=== PATIENT | female | born 1980 | race Asian ===

== ENCOUNTER 2019-06-23 16:29 | Outpatient (CLI) | payer OTHER ==
[~2019-06-23] VITALS: Ht 154.9 cm; Wt 63.1 kg
[2019-06-23 17:12] VITALS: BP 111/73
[2019-06-23 17:35] LABS: MICROSCOPIC NOT IND
[2019-06-23 17:40] LABS: CULTURE INDICATED? NO
== END 2019-06-23 20:45 | disposition home or self-care (01) ==
LOC: LDOP 16:29
PROVIDERS: ATTEND Obstetrics & Gynecology
DX: O32.2XX0 Maternal care for transverse and oblique lie, not applicable or unspecified (principal); O46.93 Antepartum hemorrhage, unspecified, third trimester; O09.523 Supervision of elderly multigravida, third trimester; Z3A.28 28 weeks gestation of pregnancy; Z88.2 Allergy status to sulfonamides
CPT/HCPCS: 59025; 76805; 81003; 99201; G0463

== ENCOUNTER 2019-09-05 09:06 | Inpatient (IN) | payer OTHER ==
[~2019-09-05] VITALS: Ht 154.9 cm; Wt 71.8 kg
[2019-09-05] MEDS ORDERED: D5%-LACTATED RINGERS 1,000 ML IV SCH (09:22)
[2019-09-05] MEDS ORDERED: OXYTOCIN 30U/ 0.9% NaCL 500ML 500 ML IV PRN (09:22)
[2019-09-05] MEDS ORDERED: OXYTOCIN 30U/ 0.9% NaCL 500ML 500 ML IV ONE (09:22)
[2019-09-05] MEDS ORDERED: TERBUTALINE 1 MG/ML, 1ML IVPush PRN (09:30)
[2019-09-05] MEDS ORDERED: ONDANSETRON 2MG/ML, 2ML IVPush PRN (09:30)
[2019-09-05] MEDS ORDERED: FENTANYL PF 100 MCG/2ML IV PRN (09:30)
[2019-09-05] MEDS ORDERED: TERBUTALINE 1 MG/ML, 1ML SQ PRN (09:30)
[2019-09-05] MEDS ORDERED: CALCIUM CARBONATE 500 MG TAB.CHEW PO PRN (09:30)
[2019-09-05] MEDS: LACTATED RINGERS 1,000 ML IV SCH ×3 (09:30→17:28)
[2019-09-05 09:40] VITALS: BP 128/84
[2019-09-05] MEDS ORDERED: PLEASE ENTER HEIGHT AND WEIGHT MC SCH (10:00)
[2019-09-05 10:08] LABS: BASOPHILS # (AUTO) 0.03 x10^3/uL (0-0.1); BASOPHILS % (AUTO) 0 % (0-1); EOSINOPHILS # (AUTO) 0.06 x10^3/uL (0-0.4); EOSINOPHILS % (AUTO) 1 % (1-7); LYMPHOCYTES # (AUTO) 1.54 x10^3/uL (1-3.4); LYMPHOCYTES % (AUTO) 19 % (22-44); MD NO; MEAN CORPUSCULAR HEMOGLOBIN 27.8 pg (27.0-34.8); MEAN CORPUSCULAR HGB CONC 32.4 g/dL (32.4-35.8); MEAN CORPUSCULAR VOLUME 85.8 fL (80-100); MEAN PLATELET VOLUME 7.6 fL (7.4-10.4); MONOCYTES # (AUTO) 0.51 x10^3/uL (0.2-0.8); MONOCYTES % (AUTO) 6 % (2-9); NEUTROPHILS # (AUTO) 5.97 x10^3/uL (1.8-6.8); NEUTROPHILS % (AUTO) 74 % (42-75); PLATELET COUNT 249 x10^3/uL (130-400); RED BLOOD COUNT 4.49 x10^6/uL (3.82-5.3); RED CELL DISTRIBUTION WIDTH 14.3 % (9.6-15.2)
[2019-09-05] MEDS ORDERED: OXYTOCIN 30U/ 0.9% NaCL 500ML 500 ML ONE ×2 (10:13→20:12)
[2019-09-05] MEDS ORDERED: LIDOCAINE 1%, 20ML ONE (10:46)
[2019-09-05] MEDS ORDERED: NEWBORN KIT ONE (10:46)
[2019-09-05] MEDS ORDERED: MISOPROSTOL 200 MCG TABLET ONE (10:46)
[2019-09-05] MEDS ORDERED: FENTANYL PF 100 MCG/2ML ONE ×2 (14:55→16:10)
[2019-09-05] MEDS: FENTANYL PF 100 MCG/2ML IVPush PRN ×2 (15:03→16:20)
[2019-09-05] MEDS ORDERED: FENTANYL/BUPIV./NS/PF 250 ML EPIDCONT SCH (16:17)
[2019-09-05] MEDS ORDERED: FENTANYL PF 500 MCG, BUPIVACAINE/PF 0.5%, 30ML 62.5 ML in SODIUM CHLORIDE 0.9% 177.5 ML EPIDCONT SCH (16:30)
[2019-09-05] MEDS ORDERED: BUPIVACAINE 0.25% ONE (16:39)
[2019-09-05] MEDS ORDERED: EPHEDRINE 50 MG/ML, 1ML ONE (17:17)
[2019-09-05] MEDS ORDERED: EPHEDRINE 50 MG/ML, 1ML IVPush ONE (17:30)
[2019-09-05] MEDS: OXYTOCIN 30U/ 0.9% NaCL 500ML 500 ML IV SCH (19:37)
[2019-09-05] MEDS ORDERED: METHYLERGONOVINE 0.2 MG/ML IM PRN (20:00)
[2019-09-05] MEDS ORDERED: ACETAMINOPHEN 325 MG TABLET PO PRN (20:00)
[2019-09-05] MEDS ORDERED: ONDANSETRON 2MG/ML, 2ML IV PRN (20:00)
[2019-09-05] MEDS ORDERED: MAGNESIUM HYDROXIDE 8%, 30ML UDC PO PRN (20:00)
[2019-09-05] MEDS ORDERED: OXYTOCIN 10 UNITS/ML, 1ML IM PRN (20:00)
[2019-09-05] MEDS ORDERED: SIMETHICONE 80 MG CHEW TAB PO PRN (20:00)
[2019-09-05] MEDS ORDERED: OXYcodone IR 5MG TABLET PO PRN (20:00)
[2019-09-05] MEDS ORDERED: IBUPROFEN 600 MG TABLET ONE (20:12)
[2019-09-05] MEDS: IBUPROFEN 600 MG TABLET PO PRN (20:20)
[2019-09-05 21:20] VITALS: BP 110/72
[2019-09-06 00:30] VITALS: BP 104/68
[2019-09-06 03:30] LABS: BASOPHILS # (AUTO) 0.05 x10^3/uL (0-0.1); BASOPHILS % (AUTO) 1 % (0-1); EOSINOPHILS # (AUTO) 0.04 x10^3/uL (0-0.4); EOSINOPHILS % (AUTO) 0 % (1-7); LYMPHOCYTES # (AUTO) 1.82 x10^3/uL (1-3.4); LYMPHOCYTES % (AUTO) 17 % (22-44); MD NO; MEAN CORPUSCULAR HEMOGLOBIN 27.9 pg (27.0-34.8); MEAN CORPUSCULAR HGB CONC 32.5 g/dL (32.4-35.8); MEAN CORPUSCULAR VOLUME 85.8 fL (80-100); MEAN PLATELET VOLUME 7.3 fL (7.4-10.4); MONOCYTES # (AUTO) 0.54 x10^3/uL (0.2-0.8); MONOCYTES % (AUTO) 5 % (2-9); NEUTROPHILS % (AUTO) 77 % (42-75); PLATELET COUNT 246 x10^3/uL (130-400); RED BLOOD COUNT 4.31 x10^6/uL (3.82-5.3); RED CELL DISTRIBUTION WIDTH 14.1 % (9.6-15.2)
[2019-09-06 04:20] VITALS: BP 102/70
[2019-09-06] MEDS: IBUPROFEN 600 MG TABLET PO PRN ×3 (05:05→20:26)
[2019-09-06] MEDS: OXYTOCIN 30U/ 0.9% NaCL 500ML 500 ML IV SCH ×2 (05:37→15:37)
[2019-09-06] MEDS: DOCUSATE 100 MG CAPSULE PO PRN ×2 (07:33→20:26)
[2019-09-06] MEDS: PRENATAL VIT/IRON/FA 1 EACH TABLET PO SCH (07:33)
[2019-09-06] MEDS: OXYcodone/APAP 5/325MG TABLET PO PRN ×3 (07:33→20:26)
[2019-09-06 07:50] VITALS: BP 106/72
[2019-09-06 12:06] VITALS: BP 112/75
[2019-09-06 19:48] VITALS: BP 108/73
[2019-09-07] MEDS: OXYTOCIN 30U/ 0.9% NaCL 500ML 500 ML IV SCH (01:37)
[2019-09-07 08:00] VITALS: BP 112/73
[2019-09-07] MEDS: IBUPROFEN 600 MG TABLET PO PRN (09:04)
[2019-09-07] MEDS: PRENATAL VIT/IRON/FA 1 EACH TABLET PO SCH (09:05)
[2019-09-07] MEDS: DOCUSATE 100 MG CAPSULE PO PRN (09:05)
== END 2019-09-07 12:40 | disposition home or self-care (01) | DRG 807 ==
LOC: LDOP 09:06 → LDIP 09:11 → 2NW 21:10
PROVIDERS: ADMIT Obstetrics & Gynecology; ATTEND Obstetrics & Gynecology
PROC: 10E0XZZ Delivery of Products of Conception, External Approach (ICD-10-PCS; principal; 2019-09-05)
DX: O99.284 Endocrine, nutritional and metabolic diseases complicating childbirth (principal); Z37.0 Single live birth; E03.9 Hypothyroidism, unspecified; Z88.2 Allergy status to sulfonamides; Z3A.39 39 weeks gestation of pregnancy
CPT/HCPCS: 36415; 85025; 86592; 86850; 86900; G0378; J3010; J2590; J7120